=== PATIENT | male | born 1990 | race Asian ===

== ENCOUNTER 2022-01-14 02:17 | Emergency (ER) | payer OTHER ==
[~2022-01-14] VITALS: Ht 177.8 cm; Wt 80.9 kg
[2022-01-14] MEDS ORDERED: METOCLOPRAMIDE INJ 10MG/2ML VIAL (J2765 PER 1) IV ONE (07:20)
[2022-01-14] MEDS ORDERED: NS 1,000 ML IV ONE (07:20)
[2022-01-14] MEDS ORDERED: dexameTHASONE 20MG/5ML VIAL (J1100 PER 1MG) IV ONE (07:20)
[2022-01-14] MEDS ORDERED: KETOROLAC 30 MG/ML 1ML VIAL IV ONE (07:20)
[2022-01-14 08:27] LABS: BASO % 0.5 % (0.0-1.0); EOS # 0.1 10^3/uL (0.0-0.5); EOS % 1.7 % (0.0-3.0); HEMATOCRIT 45.3 % (42.0-52.0); HEMOGLOBIN 15.5 g/dl (13.5-17.5); LYMPH # 1.6 10^3/uL (1.5-5.0); LYMPH % 25.7 % (24.0-44.0); MEAN CORPUSCULAR HEMOGLOBIN 29.9 pg (27.0-33.0); MEAN CORPUSCULAR HGB CONC 34.2 g/dl (32.0-36.5); MEAN CORPUSCULAR VOLUME 87.3 fl (80.0-96.0); MONO # 0.5 10^3/uL (0.0-0.8); MONO % 8.3 % (2.0-8.0); NEUTROPHILS # 4.1 10^3/uL (1.5-8.5); NEUTROPHILS % 63.5 % (36.0-66.0); PLATELET COUNT, AUTOMATED 249 10^3/uL (150-450); RED BLOOD COUNT 5.19 10^6/uL (4.30-6.10); WHITE BLOOD COUNT 6.4 10^3/uL (4.0-10.0)
[2022-01-14] MEDS ORDERED: AMOX875T2 PO (09:44)
[2022-01-14 09:50] VITALS: BP 131/70
== END 2022-01-14 09:58 | disposition home or self-care (01) ==
LOC: M ED 02:17
DX: R51.9 Headache, unspecified (principal); J32.9 Chronic sinusitis, unspecified; J34.1 Cyst and mucocele of nose and nasal sinus
CPT/HCPCS: 36415; 80047; 83735; 85025; 96361; 96374; 96375; 99284; J1100; J1885; J2765

== ENCOUNTER 2022-03-29 11:22 | Observation (INO) | payer OTHER ==
[~2022-03-29] VITALS: Ht 172.7 cm; Wt 89.9 kg
[~2022-03-29 11:22] MED LIST: AMOX875T2 PO
[2022-03-29] MEDS ORDERED: KETOROLAC 30 MG/ML 1ML VIAL IV ONE (13:10)
[2022-03-29] MEDS ORDERED: dexameTHASONE 20MG/5ML VIAL (J1100 PER 1MG) IV ONE (13:10)
[2022-03-29] MEDS ORDERED: NS 1,000 ML IV ONE (13:10)
[2022-03-29] MEDS ORDERED: AMPICILLIN SOD/SULBACTAM SOD 3 GM in D5W MINI-BAG PLUS 100 ML IV ONE (13:10)
[2022-03-29 13:56] LABS: BASO % 0.1 % (0.0-1.0); EOS % 0.1 % (0.0-3.0); HEMATOCRIT 44.1 % (42.0-52.0); HEMOGLOBIN 15.2 g/dl (13.5-17.5); LYMPH # 1.2 10^3/uL (1.5-5.0); LYMPH % 7.7 % (24.0-44.0); MEAN CORPUSCULAR HEMOGLOBIN 30.2 pg (27.0-33.0); MEAN CORPUSCULAR HGB CONC 34.5 g/dl (32.0-36.5); MEAN CORPUSCULAR VOLUME 87.5 fl (80.0-96.0); MONO # 1.5 10^3/uL (0.0-0.8); NEUTROPHILS # 12.6 10^3/uL (1.5-8.5); NEUTROPHILS % 81.5 % (36.0-66.0); PLATELET COUNT, AUTOMATED 196 10^3/uL (150-450); RED BLOOD COUNT 5.04 10^6/uL (4.30-6.10); WHITE BLOOD COUNT 15.4 10^3/uL (4.0-10.0)
[2022-03-29] MEDS ORDERED: ISOVUE-370 76% 100ML VIAL As Ordered ONE (14:07)
[2022-03-29 14:19] LABS: MONO SCRN NEGATIVE (NEGATIVE)
[2022-03-29] MEDS ORDERED: KETOROLAC 30 MG/ML 1ML VIAL IV PRN ×2 (16:55)
[2022-03-29] MEDS ORDERED: ACETAMINOPHEN 325 MG TAB PO PRN (16:55)
[2022-03-29] MEDS ORDERED: MORPHINE 2 MG/ML 1ML VIAL IV PRN (17:15)
[2022-03-29] MEDS ORDERED: oxyCODONE 5MG TAB PO PRN ×2 (17:15)
[2022-03-29] MEDS ORDERED: HOME MED LIST COMPLETE! XX SCH (17:20)
[2022-03-29] MEDS ORDERED: SUMA6INJ25 SC (17:20)
[2022-03-29] MEDS: LR 1,000 ML IV SCH (17:59)
[2022-03-29 19:30] VITALS: BP 128/69
[2022-03-29] MEDS: AMPICILLIN SOD/SULBACTAM SOD 3 GM in D5W MINI-BAG PLUS 100 ML IV SCH (20:34)
[2022-03-30] MEDS: AMPICILLIN SOD/SULBACTAM SOD 3 GM in D5W MINI-BAG PLUS 100 ML IV SCH ×2 (02:39→09:06)
[2022-03-30] MEDS: LR 1,000 ML IV SCH ×2 (03:13→10:34)
[2022-03-30 06:00] VITALS: BP 118/74
[2022-03-30 06:25] LABS: HEMATOCRIT 38.6 % (42.0-52.0); MEAN CORPUSCULAR HEMOGLOBIN 30.3 pg (27.0-33.0); MEAN CORPUSCULAR HGB CONC 34.2 g/dl (32.0-36.5); MEAN CORPUSCULAR VOLUME 88.5 fl (80.0-96.0); PLATELET COUNT, AUTOMATED 196 10^3/uL (150-450); RED BLOOD COUNT 4.36 10^6/uL (4.30-6.10); WHITE BLOOD COUNT 9.8 10^3/uL (4.0-10.0)
[2022-03-30 06:35] LABS: HEMOGLOBIN 13.2 g/dl (13.5-17.5)
[2022-03-30 07:06] LABS: BLOOD UREA NITROGEN 26 MG/DL (7-18); CARBON DIOXIDE LEVEL 27 MEQ/L (21-32); CHLORIDE LEVEL 108 MEQ/L (98-107); CREATININE FOR GFR 1.06 MG/DL (0.70-1.30); GLOMERULAR FILTRATION RATE > 60.0 (>60); GLUCOSE, FASTING 138 MG/DL (70-100); POTASSIUM SERUM 4.3 MEQ/L (3.5-5.1); SODIUM LEVEL 140 MEQ/L (136-145)
[2022-03-30] MEDS ORDERED: dexameTHASONE 20MG/5ML VIAL (J1100 PER 1MG) IV SCH (09:00)
[2022-03-30] MEDS ORDERED: INFLUENZA QUADRIVALENT PF VACCINE 0.5ML SYRINGE IM.IMMUN ONE (09:00)
[2022-03-30] MEDS ORDERED: AMOX875T2 PO ×2 (12:18→12:32)
[2022-03-30] MEDS ORDERED: IBUP-1022 PO ×2 (12:18→12:32)
[2022-03-30] MEDS ORDERED: ACET32TAB PO ×2 (12:18→12:32)
== END 2022-03-30 13:50 | disposition home or self-care (01) ==
LOC: M ED 11:22 → M ED INP 16:51 → M MSPAV 19:24
PROVIDERS: ADMIT Student in an Organized Health Care Education/Training Program; ATTEND Student in an Organized Health Care Education/Training Program
DX: J03.90 Acute tonsillitis, unspecified (principal); N17.9 Acute kidney failure, unspecified; D72.829 Elevated white blood cell count, unspecified; G43.909 Migraine, unspecified, not intractable, without status migrainosus; E86.0 Dehydration; R13.10 Dysphagia, unspecified; R49.0 Dysphonia; Z79.2 Long term (current) use of antibiotics; Z23 Encounter for immunization
CPT/HCPCS: 36415; 70491; 80047; 80048; 83605; 85025; 85027; 86308; 87070; 87486; 87581; 87633; 87635; 87798; 90471; 90686; 96361; 96365; 96366; 96375; 96376; 99284; J0295; J1100; J1885; Q9967